=== PATIENT | female | born 1940 | race Two or more races ===

== ENCOUNTER 2022-06-07 09:54 | Inpatient (IN) | payer OTHER, MEDICAID ==
[~2022-06-07] VITALS: Ht 152.4 cm; Wt 156.4 kg
[2022-06-07 10:20] VITALS: BP 161/62
[2022-06-07] MEDS ORDERED: SODIUM CHLORIDE 0.9% 500 ML IV ONE (11:00)
[2022-06-07] MEDS ORDERED: GLUCAGON HYDROCHLORIDE (RDNA) 1 MG VIAL IV ONE (11:00)
[2022-06-07 11:14] LABS: Basophils # (auto) 0 10 ^3/uL (0-0.2); Basophils % (auto) 0.7 % (0.0-2.0); Eosinophils # (auto) 0.1 10 ^3/uL (0-0.8); Eosinophils % (auto) 1.5 % (0.0-7.0); Hematocrit 41.3 % (36.0-46.0); Hemoglobin 14.1 g/dL (12.2-16.2); Lymphocytes # (auto) 1.6 10 ^3/uL (0.4-5.4); Lymphocytes % (auto) 30.9 % (10.0-50.0); Mean Corpuscular Hemoglobin 33.3 pg (28.0-32.0); Mean Corpuscular Hgb Conc. 34.2 g/dL (32.0-36.0); Mean Corpuscular Volume 97.2 fL (80.0-100.0); Monocytes # (auto) 0.5 10 ^3/uL (0-1.3); Monocytes % (auto) 9.8 % (0.0-12.0); Neutrophils # (auto) 2.9 10 ^3/uL (1.6-8.6); Neutrophils % (auto) 57.1 % (37.0-80.0); Nucleated Red Blood Cells % 0.2 %; Red Blood Cells 4.25 10^6/uL (4.0-5.20); Red Cell Distribution Width 14.9 % (11.8-14.3); White Blood Cell 5.1 10^3/uL (4.4-10.8)
[2022-06-07 11:31] LABS: Partial Thromboplastin Time 31.9 sec (24.6-33.4)
[2022-06-07 12:05] LABS: Albumin 3.5 g/dL (3.4-5.0); BUN/Creatinine Ratio 23.5; Bilirubin, Total 0.9 mg/dL (0.2-1.0); Calcium 9.2 mg/dL (8.5-10.1); Magnesium 2.3 mg/dL (1.6-2.6); Total Protein 6.6 g/dL (6.4-8.2)
[2022-06-07] MEDS ORDERED: ASPirin 325 MG TAB PO ONE (13:15)
[2022-06-07] MEDS ORDERED: PANTOPRAZOLE 40 MG/10 ML VIAL INJ IV ONE (13:15)
[2022-06-07] MEDS ORDERED: NITROGLYCERIN 0.4 MG SL TAB SL PRN (13:15)
[2022-06-07] MEDS ORDERED: MORPHINE SULFATE INJ 2 MG/ml SYRG IV PRN (13:15)
[2022-06-07] MEDS ORDERED: ACETAMINOPHEN 325 MG TAB PO PRN (13:15)
[2022-06-07] MEDS ORDERED: CHOL20003 PO (13:45)
[2022-06-07] MEDS ORDERED: METO-289 PO (13:45)
[2022-06-07] MEDS ORDERED: AZIT250T9 PO (13:45)
[2022-06-07] MEDS ORDERED: BENZ100C97 PO (13:45)
[2022-06-07] MEDS ORDERED: MELO1TAB73 PO (13:45)
[2022-06-07] MEDS ORDERED: LEVO50TA7 PO (13:45)
[2022-06-07] MEDS ORDERED: LISI20TA28 PO (13:45)
[2022-06-07] MEDS ORDERED: ATOR40TA52 PO (13:45)
[2022-06-07] MEDS ORDERED: OMEP-337 (13:45)
[2022-06-07] MEDS ORDERED: DICL1GEL50 TOP (13:45)
[2022-06-07 13:46] LABS: Cholesterol 187 mg/dL (< 200); HDL Cholesterol 61 mg/dL (40-59); LDL Cholesterol 116 mg/dL (< 100); Triglycerides 146 mg/dL (< 150)
[2022-06-07] MEDS ORDERED: hydrALAZINE HCL 20 MG/ML VL IV PRN (14:00)
[2022-06-07] MEDS ORDERED: KETOROLAC TROMETH 30 MG/ML 1ML VIAL IV ONE (16:00)
[2022-06-07] MEDS ORDERED: LISINOPRIL 20 MG TAB PO ONE (16:00)
[2022-06-07] MEDS ORDERED: ATORVASTATIN 20 MG TAB PO SCH (22:00)
[2022-06-08] MEDS ORDERED: LISINOPRIL 20 MG TAB PO SCH ×2 (10:00)
[2022-06-08] MEDS ORDERED: ENOXAPARIN SOD 40 MG/0.4 ML SYRINGE SC SCH (10:00)
[2022-06-08] MEDS ORDERED: LEVOTHYROXINE SODIUM 50 MCG TAB PO SCH (10:00)
[2022-06-08] MEDS ORDERED: ASPirin 81 mg TAB PO SCH (10:00)
[2022-06-08] MEDS ORDERED: PANTOPRAZOLE 40 MG/10 ML VIAL INJ IV SCH (10:00)
== END 2022-06-07 16:40 | disposition left against medical advice (07) | DRG 309 ==
LOC: ER 09:54 → TELE 13:11
PROVIDERS: ADMIT Nurse Practitioner Family; ATTEND Nurse Practitioner Family
DX: R00.1 Bradycardia, unspecified (principal); I24.9 Acute ischemic heart disease, unspecified; Z68.44 Body mass index [BMI] 60.0-69.9, adult; Z53.29 Procedure and treatment not carried out because of patient's decision for other reasons; E03.9 Hypothyroidism, unspecified; E66.01 Morbid (severe) obesity due to excess calories; E78.5 Hyperlipidemia, unspecified; H26.9 Unspecified cataract; I10 Essential (primary) hypertension; R73.03 Prediabetes; Z88.0 Allergy status to penicillin; Z88.5 Allergy status to narcotic agent; Z88.8 Allergy status to other drugs, medicaments and biological substances; T46.5X5A Adverse effect of other antihypertensive drugs, initial encounter
CPT/HCPCS: 36415; 71045; 73030; 80053; 80061; 83036; 83735; 83880; 84443; 84484; 85025; 85379; 85610; 85730; 93005; 96360; G0378